=== PATIENT | female | born 1985 | race American Indian/Alaskan Native ===

== ENCOUNTER 2016-09-09 06:00 | Emergency (ER) | payer OTHER ==
[2016-09-09 06:40] LABS: Urine Drugs of Abuse Note Disclamer
[2016-09-09] MEDS ORDERED: NACL 0.9% 1000 ML 1,000 ML ONE (06:42)
[2016-09-09 06:47] LABS: Bacteria,Urine 1+ /HPF (Negative); Bilirubin,Urine NEG (Negative); Blood,Urine SM (Negative); Ketones,Urine NEG (Negative); Leukocyte Esterase,Urine NEG (Negative); Mucus,Urine FEW /HPF; Nitrite,Urine NEG (Negative); Protein,Urine <15 mg/dL mg/dL (Negative); Urobilinogen,Urine < 2.0 mg/dL (<2.0)
[2016-09-09] MEDS ORDERED: BOOSTRIX IM ONE (06:48)
[2016-09-09] MEDS ORDERED: NACL 0.9% 500 ML IR ONE (06:56)
[2016-09-09] MEDS ORDERED: XYLOCAINE 1%/ EPI 1:100,000 INFILTRATI ONE ×2 (06:56→10:41)
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
[2016-09-09] MEDS ORDERED: NACL ONE (07:17)
[2016-09-09 08:00] LABS: Eosinophils % (Auto) 3.7 % (0.0-4.3); Hematocrit 34.3 % (30.3-42.9); Hemoglobin 11.8 gm/dl (10.1-14.3); Mean Corpuscular HGB Conc 34 % (30-34); Mean Corpuscular Hemoglobin 35 pg (28-32); Mean Corpuscular Volume 101 fl (79-97); Platelet Count 301 K/mm3 (140-440); Red Blood Count 3.39 M/mm3 (3.65-5.03); Red Cell Distribution Width 13.5 % (13.2-15.2)
--- NOTE | 2016-09-09 08:08 | XRay Report ---
AP CHEST: HISTORY: chest pain AP view of the chest demonstrates a normal mediastinal and cardiac contour with clear lungs and normal bony and soft tissue structures. IMPRESSION: Unremarkable AP chest.
--- NOTE | 2016-09-09 08:09 | XRay Report ---
THORACIC SPINE: History: Back pain. The bones are normally mineralized with well preserved vertebral height, alignment and interspace distances. No paraspinal soft tissue widening is noted. IMPRESSION: No acute injury identified.
--- NOTE | 2016-09-09 08:09 | XRay Report ---
LUMBOSACRAL SPINE, 3 VIEWS: History: Back pain Findings: The vertebral bodies, disk spaces and posterior elements are intact. No compression deformity or malalignment. The SI joints are symmetric and unremarkable. Impression: 1. No evidence for acute injury to the lumbar spine.
--- NOTE | 2016-09-09 08:10 | XRay Report ---
RIGHT SHOULDER: History: Right shoulder pain. Routine views demonstrate normal bony and soft tissue structures with normal joint alignment of the shoulder. IMPRESSION: Normal study.
--- NOTE | 2016-09-09 08:11 | XRay Report ---
RIGHT HAND, 3 views: History: Right hand pain The bony architecture is intact. Bony alignment is normal. No soft tissue abnormalities are seen. The joint spaces appear preserved. IMPRESSION: Normal right hand.
[2016-09-09 08:19] LABS: Alanine Aminotransferase 25 units/L (7-56); Albumin 3.9 g/dL (3.9-5); Albumin/Globulin Ratio 1.1 %; Alkaline Phosphatase 58 units/L (35-129); Anion Gap 20 mmol/L; Blood Urea Nitrogen 9 mg/dL (7-17); Calcium 8.5 mg/dL (8.4-10.2); Carbon Dioxide 22 mmol/L (22-30); Chloride 103.4 mmol/L (98-107); Glucose 100 mg/dL (65-100); Potassium 3.1 mmol/L (3.6-5.0); Sodium 142 mmol/L (137-145); Total Protein 7.6 g/dL (6.3-8.2)
[2016-09-09] MEDS ORDERED: K-DUR PO ONE ×2 (08:26→14:37)
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
--- NOTE | 2016-09-09 09:14 | Cat Scan Report ---
CT SCAN OF THE CERVICAL SPINE: HISTORY: Neck pain. TECHNIQUE: Contiguous 1.25 mm axial images of the cervical spine were obtained. Sagittal and coronal reformatted images. FINDINGS: There is normal alignment of the cervical spine. The body, pedicles and posterior ligaments appear normal. No evidence of fracture or subluxation is seen. The spinal canal appears normal. The prevertebral soft tissues appear normal. IMPRESSION: Unremarkable CT of the cervical spine. No acute process is noted.
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
[2016-09-09] MEDS ORDERED: VITAMIN B-1 100 MG, FOLVITE 1 MG, INFUVITE 10 ML, MAGNESIUM SULFATE 2 GM in NACL 0.9% 1... IV ONE (10:30)
[2016-09-09] MEDS ORDERED: XYLOCAINE 2% INFILTRATI ONE (10:42)
[2016-09-09] MEDS ORDERED: TRIPLE ANTIBIOTIC TP ONE (11:42)
[2016-09-09 18:29] VITALS: BP 114/56
== END 2016-09-09 18:44 | disposition home or self-care (01) ==
LOC: ED 06:00
DX: S61.011A Laceration without foreign body of right thumb without damage to nail, initial encounter (principal); S09.90XA Unspecified injury of head, initial encounter; S40.011A Contusion of right shoulder, initial encounter; S39.012A Strain of muscle, fascia and tendon of lower back, initial encounter; F10.120 Alcohol abuse with intoxication, uncomplicated; F32.9 Major depressive disorder, single episode, unspecified; J45.909 Unspecified asthma, uncomplicated; F17.210 Nicotine dependence, cigarettes, uncomplicated; F14.10 Cocaine abuse, uncomplicated; W22.8XXA Striking against or struck by other objects, initial encounter; Y93.89 Activity, other specified; Y92.89 Other specified places as the place of occurrence of the external cause; Y99.8 Other external cause status
CPT/HCPCS: 12001; 36415; 70450; 71010; 72070; 72100; 72125; 73030; 73130; 74177; 80053; 80307; 81001; 81025; 85025; 90471; 90715; 96365; 96366; 99285; G0480; J3411; J3475; J7030; Q9967; 80320; A6250

== ENCOUNTER 2019-05-24 08:09 | Emergency (ER) | payer SELFPAY ==
--- NOTE | 2019-05-24 12:31 | Event Note ---
ED Screening Note Date of service: 05/24/19 Time: 12:30 ED Screening Note: This initial assessment/diagnostic orders/clinical plan/treatment(s) is/are subject to change based on patients health status, clinical progression and re- assessment by fellow clinical providers in the ED. Further treatment and workup at subsequent clinical providers discretion. Patient/guardian urged not to elope from the ED as their condition may be serious if not clinically assessed and managed. Initial orders include: Psych eval and xray of right Tib/Fib
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
[2019-05-24] MEDS ORDERED: SODIUM CHLORIDE 0.9% 1000 ML 1,000 ML IV ONE (22:23)
[2019-05-24] MEDS ORDERED: fentaNYL 100 MCG/2 ML INJ IV ONE (22:24)
[2019-05-24] MEDS ORDERED: ONDANSETRON 4 MG/2 ML INJ IV ONE (22:24)
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
[2019-05-24 22:50] LABS: Bacteria,Urine 1+ /HPF (Negative); Bilirubin,Urine NEG (Negative); Blood,Urine LG (Negative); Color,Urine Amber (Yellow); Mucus,Urine 1+ /HPF; Urobilinogen,Urine < 2.0 mg/dL (<2.0)
[2019-05-24 22:58] LABS: Benzodiazepines Screen,Urine PRESUMPTIVE NEGATIVE; Methadone Screen,Urine PRESUMPTIVE NEGATIVE; Opiate Screen,Urine PRESUMPTIVE NEGATIVE
[2019-05-24 23:18] LABS: Amphetamine Screen,Urine PRESUMPTIVE POSITIVE; Cannabinoid Screen,Urine PRESUMPTIVE POSITIVE; Cocaine Screen,Urine PRESUMPTIVE POSITIVE
[2019-05-24 23:36] LABS: Basophils # (Auto) 0.1 K/mm3 (0.0-0.1); Basophils % (Auto) 0.4 % (0.0-1.8); Eosinophils # (Auto) 0.1 K/mm3 (0.0-0.4); Eosinophils % (Auto) 0.9 % (0.0-4.3); Hematocrit 30.6 % (30.3-42.9); Hemoglobin 10.6 gm/dl (10.1-14.3); Lymphocytes # (Auto) 1.9 K/mm3 (1.2-5.4); Lymphocytes % (Auto) 15.2 % (13.4-35.0); Mean Corpuscular HGB Conc 35 % (30-34); Mean Corpuscular Volume 99 fl (79-97); Monocytes % (Auto) 8.3 % (0.0-7.3); Platelet Count 242 K/mm3 (140-440); Red Blood Count 3.09 M/mm3 (3.65-5.03); Red Cell Distribution Width 13.9 % (13.2-15.2)
[2019-05-24 23:47] LABS: Alanine Aminotransferase 23 units/L (7-56); Albumin 3.6 g/dL (3.9-5); BUN/Creatinine Ratio 18; Blood Urea Nitrogen 14 mg/dL (7-17); Calcium 8.4 mg/dL (8.4-10.2); Hemolysis Index 3
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
[2019-05-25] MEDS: levoFLOXacin 500 MG TAB PO SCH (03:25)
[2019-05-25] MEDS ORDERED: HYDROcodone/ACETAMINOPHEN 5-325 MG TAB PO ONE ×2 (03:30→10:40)
[2019-05-25] MEDS ORDERED: POTASSIUM CHLORIDE ER 20 MEQ TAB PO ONE (03:30)
[2019-05-25] MEDS ORDERED: LORazepam 2 MG/ML VIAL IM ONE (13:55)
[2019-05-25] MEDS ORDERED: HALOPERIDOL LACTATE 5 MG/1 ML INJ IM ONE (13:55)
--- NOTE | 2019-05-25 13:56 | Emergency Department Report ---
Blank Doc - Documentation Documentation: Upon discharge the patient became very tearful and stated that she wanted to k ill herself. Patient was psychiatrically evaluated by psychiatrist the patient will be held into the a.m. for further evaluation and medication treatment
[2019-05-25 14:43] LABS: BUN/Creatinine Ratio 11; Blood Urea Nitrogen 9 mg/dL (7-17); Calcium 9.1 mg/dL (8.4-10.2); Hemolysis Index 29
[2019-05-25 15:02] LABS: Basophils # (Auto) 0.1 K/mm3 (0.0-0.1); Basophils % (Auto) 0.5 % (0.0-1.8); Eosinophils # (Auto) 0.5 K/mm3 (0.0-0.4); Eosinophils % (Auto) 4.1 % (0.0-4.3); Hematocrit 36.2 % (30.3-42.9); Hemoglobin 12.2 gm/dl (10.1-14.3); Lymphocytes # (Auto) 2.6 K/mm3 (1.2-5.4); Lymphocytes % (Auto) 20.6 % (13.4-35.0); Mean Corpuscular HGB Conc 34 % (30-34); Mean Corpuscular Volume 101 fl (79-97); Monocytes # (Auto) 1.1 K/mm3 (0.0-0.8); Monocytes % (Auto) 8.7 % (0.0-7.3); Platelet Count 304 K/mm3 (140-440); Red Blood Count 3.59 M/mm3 (3.65-5.03); Red Cell Distribution Width 14.3 % (13.2-15.2)
[2019-05-26 08:56] VITALS: BP 122/79
--- NOTE | 2019-05-26 10:07 | Consultation ---
History of Present Illness - Reason for Consult Consult date: 05/26/19 Reason for consult: Psych eval - Chief Complaint Chief complaint: I was high on drugs - History of Present Psychiatric Illness The patient is a 33yo single unemployed female with history of polysubstance use and MDD. Patient was evaluated by [facility] and reviewed with me. Patient was deemed fit for discharge but she became tearful, emotionally dysregulated and reported being suicidal. Her UDS was positive for Amphetamine, Cocaine and THC. Patient was medicated with Haldol and Lorazepam last night. Patient seen by me this morning. She reports feeling better this morning, she slept well last night and able to think clearly. She is alert, fully oriented, c porifrio and pleasant. She admits to have been using drugs and states that she needs help with her drug use. She requests to be prescribed medications to help with her mood and sleep. Patient denies panic attacks, recurrent nightmares or flashbacks. Patient denies symptoms suggestive of OCD or PTSD. Patient denies hallucinations, paranoia, thought interference and no features suggestive of hypomania or gisela. She completely denies suicidal or homicidal thoughts. PAST PSYCHIATRIC HISTORY: Diagnoses: Polysubstance use and MDD Family Psychiatric History None reported or documented SOCIAL HISTORY Marital Status: single Living Arrangements: homeless now, was living with boyfriend Employment Status: unemployed Access to guns/weapons: Patient denies Education: High School History of Abuse: Patient denies Legal History: Patient denies ROS: Constitutional: Negative for weight loss ENT: Negative for stridor Respiratory: Negative for cough or hemoptysis All other systems reviewed and are negative MENTAL STATUS General Appearance and Behavior: age appropriate, good eye contact, cooperative with questioning and polite Cooperation: Cooperative Psychomotor Behavior: within normal limits Mood: OK Affect and affective range: Congruent with stated mood Thought Process: Fluent/Logical and Goal-directed Thought Content: Within reality Speech: Normal volume and Regular rate and rhythm Intellectual Functioning Average Suicidal Ideation: Denies SI Homicidal Ideation: Denies HI Impulse Control: intact Insight and Judgment: normal insight and judgment Memory: Normal Attention: Normal Orientation: alert and oriented Diagnoses: Substance induced mood disorder Polysubstance (Cocaine, Meth and THC) RECOMMENDATIONS MEDICATIONS: Vistaril 50mg q6h prn anxiety and for insomnia and Seroquel 50mg qhs to help with mood and sleep Risks, benefits and alternatives of medications discussed with the patient, questions answered and consent obtained from patient. PSYCHOTHERAPY: Supportive psychotherapy provided MEDICAL: Per primary team DEBURR OPERATOR: no DISPOSITION: Per primary team, no indication for acute inpatient psychiatric hospitalization at this time LEGAL STATUS: 1013 rescinded FOLLOW-UP: Will sign off Medications and Allergies Allergies Allergy/AdvReac Type Severity Reaction Status Date / Time pollen extracts Allergy Unknown Verified 09/09/16 06:30 Home Medications Medication Instructions Recorded Confirmed Last Taken Type cephALEXin [Keflex] 500 mg PO Q6HR #28 capsule 09/09/16 Unknown Rx traMADoL [Ultram] 50 mg PO Q6HR PRN #10 tablet 09/09/16 Unknown Rx levoFLOXacin [Levaquin TAB] 500 mg PO QDAY #10 tablet 05/25/19 Unknown Rx Active Meds: Active Medications Levofloxacin (Levaquin) 500 mg PO QDAY DELROY Last Admin: 05/25/19 03:25 Dose: 500 mg Documented by: Mental Status Exam - Vital signs Last Vital Signs Temp 98.2 F 05/26/19 08:54 Pulse 86 05/26/19 08:54 Resp 14 05/26/19 08:54 BP 122/79 05/26/19 08:54 Pulse Ox 98 05/26/19 08:54 Results Result Diagrams: 05/25/19 14:09 05/25/19 14:09 Abnormal lab results 05/25/19 05/25/19 Range/Units 14:09 14:09 WBC 12.7 H (4.5-11.0) K/mm3 RBC 3.59 L (3.65-5.03) M/mm3 MCV 101 H (79-97) fl MCH 34 H (28-32) pg [place] % (Auto) 8.7 H (0.0-7.3) % [place] # 1.1 H (0.0-0.8) K/mm3 Eos # 0.5 H (0.0-0.4) K/mm3 Seg Neutrophils # 8.4 H (1.8-7.7) K/mm3 Glucose 117 H (65-100) mg/dL All other labs normal.
[2019-05-26] MEDS ORDERED: HYDROcodone/ACETAMINOPHEN 5-325 MG TAB PO ONE (10:22)
[2019-05-26] MEDS: levoFLOXacin 500 MG TAB PO SCH (10:33)
--- NOTE | 2019-05-26 11:23 | Emergency Department Report ---
Blank Doc - Documentation Documentation: Patient was seen by psychiatry and 1013 was rescinded and patient can be sent home due to her not meeting inpatient criteria.
[2019-05-26] MEDS ORDERED: QUEtiapine 25 MG TAB PO SCH (22:00)
== END 2019-05-26 12:56 | disposition home or self-care (01) ==
LOC: EEVIPCON 08:09 → ED 08:09
DX: J18.9 Pneumonia, unspecified organism (principal); E87.6 Hypokalemia; F19.10 Other psychoactive substance abuse, uncomplicated; R10.9 Unspecified abdominal pain; J45.909 Unspecified asthma, uncomplicated; F32.9 Major depressive disorder, single episode, unspecified; F17.200 Nicotine dependence, unspecified, uncomplicated; F14.90 Cocaine use, unspecified, uncomplicated; F12.90 Cannabis use, unspecified, uncomplicated; Z79.899 Other long term (current) drug therapy; Z91.048 Other nonmedicinal substance allergy status; W22.8XXA Striking against or struck by other objects, initial encounter; Y93.89 Activity, other specified; Y92.89 Other specified places as the place of occurrence of the external cause; Y99.8 Other external cause status
CPT/HCPCS: 36415; 70450; 71260; 72125; 73070; 73590; 74177; 80048; 80053; 80307; 81001; 84703; 85025; 86850; 86900; 86901; 96361; 96372; 96374; 96375; 99285; J1630; J2060; J2405; J3010; J7030; Q9967; 80320; G0480; Q0177